=== PATIENT | female | born 1940 | race Caucasian/White ===

== ENCOUNTER 2016-12-04 05:59 | Observation (INO) | payer MEDICARE, OTHER ==
[~2016-12-04] VITALS: Ht 154.9 cm; Wt 105.0 kg
--- NOTE | ~2016-12-04 | CON ---
PATIENT'S NAME: TOM [facility] AGE: 76 Y [address] ROOM: [address] [address] LOCATION: [facility] [place] ADMIT DATE: 12/04/2016 Consultation DISCHARGE DATE: FAMILY PHYSICIAN: Angel Erickson PA-C ATTENDING PHYSICIAN: RELL OCHOA DATE OF CONSULTATION: 12/04/2016 CHIEF COMPLAINT: Bilateral lower extremity edema. HISTORY OF PRESENT ILLNESS: The patient is a 76-year-old female with past medical history of asthma, bilateral lymphedema secondary to trauma, stress incontinence, and obesity, who presents here with stress incontinence. The patient was admitted and had a sling operation done today by Dr. Ochoa. The patient tolerated the procedure well. However, the patient was noted to have moderately swollen bilateral lower extremities. Apparently, the patient had not been taking her Lasix for 1 week. The patient reports that her leg size has increased significantly. The patient reports that she experienced a fall at young age and ever since then has been having bilateral lower extremities edema secondary to lymphedema. She uses a cane to walk around and reports that her left leg is worse than the right. The patient lives in [place]. The patient currently denies shortness of breath, fever, cough, abdominal pain, nausea, vomiting, chest pain, and diarrhea. MEDICAL HISTORY: Asthma, lymphedema, stress incontinence, and obesity. SURGICAL HISTORY: Sling, hysterectomy, appendectomy, and multiple lower extremity surgery secondary to fall. FAMILY HISTORY: Mother has essential tremor. Sister has asthma, and father had valvular disease. SOCIAL HISTORY: The patient is a retired retail mortgage banker. Denies of smoking. MEDICATION: Please see MAR. REVIEW OF SYSTEMS: All systems have been reviewed and are negative except for what I mentioned in PATIENT'S NAME: [facility] AGE: 76 Y [address] ROOM: [address] [address] LOCATION: [facility] [place] ADMIT DATE: 12/04/2016 Consultation DISCHARGE DATE: FAMILY PHYSICIAN: Angel Erickson PA-C ATTENDING PHYSICIAN: RELL OCHOA [facility]. PHYSICAL EXAMINATION: VITAL SIGNS: Blood pressure 154/65, temperature of 97.6, heart rate of 72, respiratory rate of 14, and saturating 94% on room air. GENERAL APPEARANCE: The patient alert and awake, in no acute distress. HEAD: Normocephalic, atraumatic. EYES: Extraocular muscles intact. NOSE: No nasal discharge. EARS: No ear discharge. MOUTH: Moist oral mucosa. CHEST: Clear to auscultation bilaterally. HEART: Regular rate and rhythm. No murmurs, rubs, or gallops. ABDOMEN: Surgical incision present, clear, dry, and intact. The patient has nerve stimulator packet underneath her abdominal skin for her lower extremity pain. SHOVEL LOGGER: Alert and oriented. Motor and sensory grossly intact. EXTREMITIES: Bilateral lower extremity edema. SKIN: Warm to touch. DATA: Sodium 141, potassium 3.3, creatinine of 0.8, BUN of 21, CO2 of 26. White blood cell count of 6.6, hemoglobin of 15, and platelet of 245. ASSESSMENT AND PLAN: 1. Lower extremity bilateral edema. Etiology secondary to lymphedema and cessation of her Lasix for one week. We will start the patient on IV Lasix 40 mg IV b.i.d. and will follow up clinically. 2. Hypokalemia. We will give the patient. 40 mEq of potassium now and continue home dose of potassium supplement. 3. Asthma, stable, continue albuterol. 4. Stress incontinence, status post surgery, in stable condition. 5. Obesity, ongoing. Greater than 30 minutes was spent on patient care. Assessment and plan was discussed with the patient. Thank you for involving in the patient's care. EILEEN MCMILLAN MD AD/modl PATIENT'S NAME: ALONA SANTOS [facility] AGE: 76 Y [address] ROOM: [place] [address] LOCATION: [facility] [place] ADMIT DATE: 12/04/2016 Consultation DISCHARGE DATE: FAMILY PHYSICIAN: Angel Erickson PA-C ATTENDING PHYSICIAN: RELL OCHOA /[id number] d: 12/04/16 1748 t: 05/26/17 1544, CONSULTATION REPORT
--- NOTE | ~2016-12-04 | OR ---
PATIENT'S NAME: ALONA SANTOS [facility] AGE: 76 Y [address] ROOM: [place] [address] [place] [facility] [place] ADMIT DATE: 12/04/2016 OR/Procedure Report DISCHARGE DATE: FAMILY PHYSICIAN: Angel Erickson PA-C ATTENDING PHYSICIAN: RELL OCHOA SURGEON: Rell Ochoa MD TRUCK BRACER: None. DATE OF PROCEDURE: 12/04/2016 PREOPERATIVE DIAGNOSIS: Stress urinary incontinence. POSTOPERATIVE DIAGNOSIS: Stress urinary incontinence. PROCEDURES: 1. Pubovaginal sling utilizing the TVT retropubic system (Advantage Fit) by [employer]. 2. Cystourethroscopy. ANESTHESIA: General. INDICATIONS FOR PROCEDURE: The patient is a pleasant, 76-year-old female with history of stress urinary incontinence. The patient was explained the risks, benefits, indications, and alternatives to above procedure and wished to proceed and consented freely. DESCRIPTION OF OPERATION: The patient was brought back to the operating room, where she has placed on the OR table in the supine position. A surgical time- out was called the patient identification, surgical site, and procedure was then verified. We also did verify that the patient received an IV Levaquin antibiotic within an hour of beginning the procedure. The patient was then moved and placed in a low lithotomy position after undergoing successful administration of general endotracheal anesthesia. The patient had been converted to the dorsal lithotomy position and her genital area was then prepped and draped in usual sterile fashion. A Jackson catheter was placed per urethra and a Sean retractor in the vagina posteriorly. Of note, given the patient's body habitus, this led to a more technically challenging case given a more deep seeded urethral meatus and difficult to reach anterior vaginal wall. Local anesthetic was injected into the anterior vaginal wall as well as laterally. I also injected local anesthetic in the suprapubic area. A midline incision was then made below the urethral meatus. Metzenbaum scissors were used to create a tissue plane between the bladder and the vaginal wall and urethra. Once the tissue plane was developed using a push spread technique, I dissected up to the undersurface of the ischiopubic rami. I then used a catheter guide to displace the bladder neck and the urethra. The TVT trocar was then used to perforate the endopelvic fascia and then was carefully PATIENT'S NAME: ALONA SANTOS [facility] AGE: 76 Y [address] ROOM: [place] [address] LOCATION: [facility] [place] ADMIT DATE: 12/04/2016 OR/Procedure Report DISCHARGE DATE: FAMILY PHYSICIAN: Angel Erickson PA-C ATTENDING PHYSICIAN: RELL OCHOA passed through the space of Retzius and perforating the rectus sheath and muscle. Again, this was passed from the bottom to top approach. A small incision was made on the right side where the needle tip was exposed through the incision. The hemostat was then placed on the sheath to temporarily secured it extra-abdominally. The trocar was then removed leaving the mesh and sheath in place. Identical passage of the trocar was performed on the left side in the same fashion. The Jackson catheter was then removed and cystoscopy was performed using the 70-degree lens and the bladder was distended to approximately 300 mL. I did visualize the blue sheath along the right lateral aspect of her bladder consistent with a small bladder perforation with passage of the right trocar. Otherwise, her bladder was normal with her ureteral orifices to be in their normal orthotopic location and no evidence of any bladder tumors, cellules, or diverticula. I then emptied her bladder and then replaced the Jackson catheter and then repast the right sided trocar in the same fashion using the bottom to top approach. I then removed the Jackson catheter and repeated cystoscopy again now visualizing no trocar within the bladder and now both trocars giving minimal indentation to the bladder. I then adjusted the tension on the sling by pulling the trocars upward, then removed the surrounding plastic sheath and trocar. Again visualization was somewhat difficult given the patient's body habitus and deep vagina. The vaginal site and trocar sites were then irrigated with antibiotic solution. The vaginal wall was then closed with a running 4-0 Vicryl suture. The skin puncture sites were closed with 4-0 Monocryl subcuticular stitch and covered with Dermabond. The patient did tolerate the procedure well. The patient was then taken out of the lithotomy position where she was then awoken from general anesthesia, extubated, and transferred to the recovery bed and transported to the recovery room in good condition. At the conclusion of the procedure, I had placed a Jackson catheter and left this to gravity drainage as well as placed a Premarin soaked vaginal pack within her vaginal introitus. COMPLICATIONS: None. ESTIMATED BLOOD LOSS: Less than 50 mL. DRAINS: Indwelling Jackson catheter. SPECIMENS: None. FOLLOW UP PLAN: We will plan to admit the patient overnight for observation and get her catheter out as well as vaginal packing out tomorrow morning. The patient then will be given a trial of void prior to discharge home and then if she passes a trial void, we will plan to see her back in followup in Urology Clinic in 6 weeks. PATIENT'S NAME: ALONA SANTOS [facility] AGE: 76 Y [address] ROOM: [place] [address] LOCATION: [facility] [place] ADMIT DATE: 12/04/2016 OR/Procedure Report DISCHARGE DATE: FAMILY PHYSICIAN: Angel Erickson PA-C ATTENDING PHYSICIAN: RELL OCHOA RELL OCHOA MD GP/modl /[id number] CC: Angel Erickson PA-C d: 12/04/16 1129 t: 12/10/16 0835, OPERATIVE SUMMARY
[~2016-12-04 05:59] MED LIST: ASCORBIC ACID500 MG PO; CALCIUM600 MG PO; FLONASE 50 MCG/16 GM NOSE; FUROSEMIDE20 MG PO; K-TAB 10MEQ10 MEQ PO; MULTIVITAMINS1 EAC2 PO; NORTRIPTYLINE H25 MG PO; PAXIL40 M1 PO; PROAIR RESPICL90 MCG INH; SUDAFED PE10 MG PO; VITAMIN B-121000 MCG PO; VITAMIN D1000 UNIT PO; VITAMIN E400 UNI2 PO
[2016-12-04 06:35] LABS: BASOPHIL # 0.1 K/uL (0.0-0.2); BASOPHIL % 0.8 %; EOSINOPHIL # 0.1 K/uL (0.0-0.5); EOSINOPHIL % 2.1 %; IMMATURE GRANULOCYTE % 0.2 %; LYMPHOCYTE # 1.6 K/uL (0.8-4.0); LYMPHOCYTE % 24.7 %; MCH 31.4 pg (27.0-34.0); MCHC 33.3 gm/dL (32.0-36.5); MCV 94.3 fl (83.0-98.0); MONOCYTE # 0.8 K/uL (0.0-1.0); MONOCYTE % 11.3 %; MPV 9.8 fl (9.4-12.4); NEUTROPHIL % 60.9 %; NRBC % 0 /100WBC (0-0.00); PLATELET COUNT 245 K/uL (150-450); RBC 4.77 M/uL (3.50-5.50); RDW-CV 12.5 % (11.9-14.6); WBC 6.6 K/uL (4.0-11.0)
[2016-12-04 06:55] LABS: ALBUMIN 3.6 gm/dL (3.5-5.0); ALK PHOS 92 IU/L (33-138); ALT 20 IU/L (12-78); ANION GAP 13.3 (10.0-19.0); AST 25 IU/L (10-40); BLOOD UREA NITROGEN 21 mg/dL (6-24); CALCIUM 8.9 mg/dL (8.5-10.5); CHLORIDE 105 mMol/L (96-110); CO2 26 mMol/L (22-32); CREATININE 0.8 mg/dL (0.5-1.1); POTASSIUM 3.3 mMol/L (3.7-5.1); SODIUM 141 mMol/L (135-145); TOTAL BILIRUBIN 0.8 mg/dL (0.0-1.5); TOTAL PROTEIN 7.4 g/dL (6.0-8.4)
[2016-12-04 06:57] LABS: ESTIMATED GFR (MDRD EQUATION) > 60
--- NOTE | 2016-12-04 16:43 | NUR ---
Patient is alert and oriented, slightly hypertensive, on room air. She came up from surgery around 1100. Was supposed to be an outpatient but needed some O2 and has not taken her lasix for a week. Her legs bilaterally are 4+ edema and painful. Weighed her upon arrival, 106.3Kg on the standing scale. Morales in place, 2 stab sites with sutures and glue. Vag packing, cream and sutures to the vagina. Had 1 tab of [place] around 1500. Internal stimulator for L) leg pain. Clear liquid diet for lunch, should be regular for supper. Will watch overnight. DC morales and vag packing at 0600.
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
--- NOTE | 2016-12-05 06:09 | NUR ---
0600 VAGINAL PACKING REMOVED. PATIENT TOLERATED WELL. NORCO ADMINISTERED FOLLOWING PROCEDURE.
[2016-12-05] MEDS ORDERED: COLACE100 MG PO (08:31)
[2016-12-05] MEDS ORDERED: LEVAQUIN500 MG PO (08:34)
[2016-12-05] MEDS ORDERED: NORCO 5-325 TA1 EACH PO (08:35)
--- NOTE | 2016-12-05 13:15 | NUR ---
DISCHARGE: Pt. was explained discharge instructions, stress incontinence surgery d/c instructions, colace, norco, levaquin med education. Patient verbalized understanding, no questions or concerns. IV removed by primary nurse. Left with all belongings and prescriptions. Taken to front door by aide and driven home by . Left at 1315.
--- NOTE | 2016-12-05 15:41 | NUR ---
Significant Event: Pt denies pain. Up with standby assist. Continues to have 3-4 dependent edema to bilaterial lower legs. Up with standby assist to the br. Voided 200ml, bladder scanned for 97ml. Dc to home with at 1315, states understanding of all dc instructions. Stab sites x2 to suprapubic area approximated with skin glue. Follow up:
== END 2016-12-05 13:15 | disposition disaster alternative care site (69) ==
LOC: GSDC 05:59 → GMSU 06:00 → GPOC 07:00 → GMSU 11:46 → GSDC 11:46 → GMSU 12-05 13:15 → GSDC 12-05 13:15 → GMSU 12-05 13:15
PROVIDERS: ADMIT Urology
PROC: 0TSD0ZZ Reposition Urethra, Open Approach (ICD-10-PCS; principal; 2016-12-04)
DX: N39.3 Stress incontinence (female) (male) (principal); N32.81 Overactive bladder; F32.9 Major depressive disorder, single episode, unspecified; J45.909 Unspecified asthma, uncomplicated; M79.7 Fibromyalgia; E66.9 Obesity, unspecified; E87.6 Hypokalemia; Z88.2 Allergy status to sulfonamides; Z88.1 Allergy status to other antibiotic agents; Z90.49 Acquired absence of other specified parts of digestive tract; Z90.710 Acquired absence of both cervix and uterus; Z98.890 Other specified postprocedural states
CPT/HCPCS: G0378; J0360; J1100; J1650; J1940; J1956; J2001; J2405; J7120